=== PATIENT | female | born 1950 | race Caucasian/White ===

== ENCOUNTER 2017-03-12 05:17 | Day surgery (SDC) | payer OTHER, BC ==
[~2017-03-12] VITALS: Ht 162.6 cm; Wt 83.9 kg
--- NOTE | ~2017-03-12 | S ---
[facility] [place] [address] SURGICAL PATH RPT PROCEDURE Name: FRANK CLEMENS Room #: DEP [facility].#: [id number] Admission: 03/12/17 Date of : 48 Discharge: 03/12/17 Report #: [id number] Path Case #: [id number] PATHOLOGY REPORT COLLECTION DATE: 03/12/2017 RECEIVED DATE: 03/12/2017 SUBMITTING PHYS: Dr. Norbert Vickers OTHER PHYS: SPECIMEN(S) RECEIVED: A.Basal cell carcinoma left lower eyelid-medial canthus * * * * * * * * * * * * FINAL DIAGNOSIS: A. Basal cell carcinoma left lower eyelid-medial canthus: - Negative for residual carcinoma. - Biopsy site changes present. PATHOLOGIST: Manuelito An M.D. REPORT ELECTRONICALLY SIGNED BY: Manuelito An M.D. DATE/TIME: 03/13/2017 13:16 * * * * * * * * * * * * GROSS PATHOLOGY: The specimen is received fresh from the OR, labeled "Frank Clemens and basal cell carcinoma left lower eyelid medial canthus". It consists of an oriented ellipse of kwok-white skin and subcutaneous tissue measuring 0.8 x 0.4 cm. It is excised to a depth of 0.2 cm. Superior is designated 12:00. The margins are inked as follows: 12-6 - blue, 6-9 - black, and 9-12 - red. The specimen is serially sectioned and entirely submitted for one frozen section. The frozen section has been submitted as A1FS. (CLW:pit; 03/12/2017) FROZEN SECTION DIAGNOSIS: A1FS: "Basal cell carcinoma left lower eyelid medial canthus": - Previous biopsy site changes, margins free of invasive tumor. - The case was discussed with Dr. Norbert Vickers in the operating room and a written report is placed in the patient's chart. Frozen section Testing performed by [facility] at [facility] [address] [place] [address] CLINICAL HISTORY: [place] [address] [place] [address] SURGICAL PATH RPT PROCEDURE Name: CLEMENSFRANK Room #: DEP [facility] M.R.#: [id number] Admission: 03/12/17 Date of : 48 Discharge: 03/12/17 Report #: [id number] Path Case #: [id number] BCCA left lid INITIAL CPT CODE(S): A; 21989, 16446 Professional services performed by [facility] at [facility] [address] [place] [address] Technical services performed by [facility] at [address] [place] [address], [place] [address]. [facility] [address] [address] PHONE: [phone] DIRECTOR: Isael Rubio M.D. * * * END OF REPORT * * *
--- NOTE | ~2017-03-12 | O ---
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 PROCEDURE: Excision of basal cell carcinoma of left medial canthus with myocutaneous flap repair of defect, silicone lacrimal intubation with nasal surgical video endoscopy. SURGEON: Norbert Vickers MD NURSERYPERSON: None. ANESTHESIA: General. COMPLICATIONS: None. INDICATIONS FOR SURGERY: This pleasant 67-year-old woman has a biopsy proven basal cell carcinoma in her left medial canthus extending on to the upper eyelid. It is directly overlying the lacrimal outflow apparatus. She presents today for excision of the residual tumor with frozen sections, subsequent flap repair of that defect and silicone lacrimal intubation. Informed consent was obtained to include, but not limit to the potential risk for loss of vision, bleeding, infection, failure to improve the problem, the potential need for further surgery or treatment. DESCRIPTION OF PROCEDURE: The patient was taken to the operating room where general anesthesia was administered. The left medial canthal area and the left lateral wall of the nose were then generously infiltrated with Xylocaine with epinephrine mixed with Marcaine and Wydase. The patient was subsequently prepped and draped in the usual sterile fashion. A fine tip skin marking pen was then utilized to outline the residual lesion in the medial canthus and upper lid. Those incisions were then made with a [facility] [address] [place] [address] OPERATIVE REPORT Name: FRANK CLEMENS Room #: DEP [facility].#: [id number] Admission: 03/12/17 Attend Phys: Norbert Vickers MD Discharge: 03/12/17 Date of : 48 Report #: [id number] scissor removing 1-2 mm of normal appearing tissue along with that was distinctly abnormal. This tissue was then oriented on a drawing for the waiting pathologist as hemostasis was achieved in the field with diligent pinpoint monopolar cautery. The pathologist snap froze that tissue and found that the margins were clear. She did see evidence of prior biopsy. The superior and inferior puncta were then dilated with a double-ended punctum dilator. Santos tubes were then passed through the superior and inferior canaliculi and down the nasolacrimal duct into the inferior meatus. The cottonoid soaked in Afrin had been placed in the nares at the beginning of the case was removed. The nasal vault was then inspected with the video endoscope. The Santos hook was then used with the video endoscope to grasp the end of the Santos tube under the inferior turbinate and it was drawn at the nares. The Santos tubes were then secured to themselves with 3 square throws and subsequently to the lateral wall of the nose with one 5-0 Prolene suture. The area in the medial canthus was then undermined and hemostasis reachieved. The relaxing incision was made and a flap developed. The flap was then advanced and closed with interrupted 6-0 plain gut sutures. Erythromycin ophthalmic ointment was placed on the incision and the patient was subsequently transported to the recovery area having tolerated the procedures well with no anesthetic or operative complications being noted. By: 1111 1138 Norbert Vickers MD /nt
[~2017-03-12 05:17] MED LIST: ASPIRIN325 PO; COZAAR 25 MG TA25 MG PO; CRESTOR10 MG PO; GLUCOPHAGE500 MG PO; HYDROCHLOROTHIA25 M2 PO; NORCO 5-325 TA1 EACH PO; XANAX 0.25 MG0.25 MG PO
[2017-03-12 09:02] LABS: GLUCOSE POCT 135 mg/dl (70-99)
[2017-03-12 09:49] VITALS: BP 135/51
[2017-03-12 11:32] LABS: GLUCOSE POCT 128 mg/dl (70-99)
== END 2017-03-12 11:30 | disposition home or self-care (01) ==
LOC: TBA 05:17 → OR 05:17
PROVIDERS: Ophthalmology
DX: D23.12 Other benign neoplasm of skin of left eyelid, including canthus (principal); H04.552 Acquired stenosis of left nasolacrimal duct; H02.89 Other specified disorders of eyelid; I10 Essential (primary) hypertension; E11.9 Type 2 diabetes mellitus without complications; E78.5 Hyperlipidemia, unspecified; G47.33 Obstructive sleep apnea (adult) (pediatric); F32.89 Other specified depressive episodes; F41.8 Other specified anxiety disorders; Z87.442 Personal history of urinary calculi; Z87.891 Personal history of nicotine dependence; Z98.890 Other specified postprocedural states; Z79.899 Other long term (current) drug therapy; Z88.2 Allergy status to sulfonamides; Z91.040 Latex allergy status; Z88.8 Allergy status to other drugs, medicaments and biological substances; Z79.891 Long term (current) use of opiate analgesic
CPT/HCPCS: 50010; 50101; 50398; 51636; 51777; 56528; 62110; 62850; 64037

== ENCOUNTER → 2020-08-08 | Outpatient (CLI) | payer OTHER, BC ==
[~2020-08-08] MED LIST changes: +CIPRO500 MG PO; +HYDROCODONE-AP1 EAC6 PO; +ONDANSETRON HCL4 M2 PO
== END ==
LOC: SJCVC 10:25
PROVIDERS: ATTEND Internal Medicine
DX: R94.31 Abnormal electrocardiogram [ECG] [EKG] (principal); Z13.220 Encounter for screening for lipoid disorders; I35.8 Other nonrheumatic aortic valve disorders; I35.0 Nonrheumatic aortic (valve) stenosis; I10 Essential (primary) hypertension; F41.9 Anxiety disorder, unspecified; R07.89 Other chest pain; E11.9 Type 2 diabetes mellitus without complications; E78.5 Hyperlipidemia, unspecified; G47.30 Sleep apnea, unspecified; Z86.73 Personal history of transient ischemic attack (TIA), and cerebral infarction without residual deficits; Z87.891 Personal history of nicotine dependence; R09.89 Other specified symptoms and signs involving the circulatory and respiratory systems; E78.00 Pure hypercholesterolemia, unspecified; Z88.5 Allergy status to narcotic agent; Z88.2 Allergy status to sulfonamides; Z88.1 Allergy status to other antibiotic agents; Z91.040 Latex allergy status

== ENCOUNTER → 2020-08-17 | Outpatient (CLI) | payer BC, OTHER ==
[~2020-08-17] MED LIST changes: +ASA81BEC PO; +CLOPIDOGREL75 MG PO; +METOPROLOL SUCC25 M1 PO; +SUPER THERAVIT1 EACH PO; +VITAMIN D325 MC3 PO
== END ==
LOC: SJCVCIMAG 07:55
PROVIDERS: ATTEND Internal Medicine
DX: I65.23 Occlusion and stenosis of bilateral carotid arteries (principal); I08.1 Rheumatic disorders of both mitral and tricuspid valves; I10 Essential (primary) hypertension; R01.1 Cardiac murmur, unspecified; R09.89 Other specified symptoms and signs involving the circulatory and respiratory systems; E11.9 Type 2 diabetes mellitus without complications; Z87.891 Personal history of nicotine dependence

== ENCOUNTER → 2020-08-22 | Outpatient (CLI) | payer BC, OTHER | LOC: SJCVCIMAG 07:18 | PROVIDERS: ATTEND Internal Medicine | DX: R00.0 Tachycardia, unspecified (principal); I49.3 Ventricular premature depolarization; R06.00 Dyspnea, unspecified; R10.9 Unspecified abdominal pain; R11.0 Nausea; F41.9 Anxiety disorder, unspecified; E11.9 Type 2 diabetes mellitus without complications; Z79.84 Long term (current) use of oral hypoglycemic drugs; Z79.899 Other long term (current) drug therapy; Z87.891 Personal history of nicotine dependence ==

== ENCOUNTER 2020-08-28 06:27 | Inpatient (IN) | payer OTHER, BC ==
[~2020-08-28] VITALS: Ht 162.6 cm; Wt 82.6 kg
[~2020-08-28 06:27] MED LIST changes: -ASA81BEC PO; -CLOPIDOGREL75 MG PO; -METOPROLOL SUCC25 M1 PO; -SUPER THERAVIT1 EACH PO; -VITAMIN D325 MC3 PO
[2020-08-28 07:21] VITALS: BP 142/56
[2020-08-28] MEDS ORDERED: ASA81BEC PO (07:36)
[2020-08-28] MEDS ORDERED: SUPER THERAVIT1 EACH PO (07:37)
[2020-08-28] MEDS ORDERED: VITAMIN D325 MC3 PO (07:37)
--- NOTE | 2020-08-28 12:05 | CATHLAB ---
[facility] [place] [address] INVASIVE PROCEDURE REPORT Name: FRANK CLEMENS Room #: 209-P ADM IN M.R.#: [id number] Admission: 08/28/20 Attend Phys: Tolu Franco MD, Discharge: Date of : 48 Report #: [id number] THIS REPORT FOR: cc: Deya Clark MD, Genelle J. MD Mancuso, Gerald M. MD [facility] ~ APPROVED REPORT Study performed: 08/28/2020 08:01:49 Patient Details Patient Status: Out-Patient Room #: The patient is a 70 year-old female Event Personnel Thomas Flores Jewel Grinder, Tr Garcia RN RN, Hanny Lewis RTR Scrub, Casey Wells RTR Monitor Procedures Performed Left Heart Cath w/or w/o Coronaries [id number] [facility] Place w/wo Plasty Single RCA 068673 Art Access - R femoral artery* Renal Bilateral Peripheral Angiography 1090768 CVRENALBIL Hemostasis w/ Mynx 01260 Initial Mod Sed Same Phys/QHP Gr5y 362797 17528 Mod Sed Same Phys/QHP Ea 480792 Procedure Narrative The patient was brought electively to the Cardiac Catheterization Laboratory and was prepped and draped in a sterile manner. The Right Groin^ was infiltrated with 1% Lidocaine subcutaneous anesthesia. A PINNACLE 6FR Sheath #[id number] sheath was inserted into the RFA^. Coronary angiography was performed using coronary diagnostic catheters. The right coronary system was accessed and visualized with a 6FR JR4 catheter. The left coronary system was accessed and visualized with a 6FR JL4 catheter. The left ventricle was accessed and visualized with a 6FR STRAIGHT PIGTAIL catheter. Left ventricular/Aortic Valve gradient assessed via catheter pullback. Left ventriculogram was performed in 30 degree projection. Closure device was deployed with a Fr MYNXGRIP 6/7F #[id number]. The patient tolerated the procedure well and there were no complications associated with the procedure. There was no hematoma. Intraoperative Conscious Sedation Sedation start time: 8:51 Case end Time: 9:[address] [address] INVASIVE PROCEDURE REPORT Name: FRANK CLEMENS Room #: 209-P [facility] [place] ..#: [id number] Admission: 08/28/20 Attend Phys: Tolu Franco, Discharge: Date of : 48 Report #: [id number] Fentanyl 50 mcg Versed 1 mg Fluoro Time: 7.00 minutes Dose: DAP 77590.00 cGycm2 1661 mGy Contrast Type and Amount: Omnipaque 190 ml Hemodynamics The aortic pressure is 163/64 mmHg with a mean of 110 mmHg. The left ventricular pressure is 176/10 mmHg with a mean of mmHg. The left ventricular end diastolic pressure is 27 mmHg. Pullback from the left ventricle to the aorta revealed no gradient across the aortic valve. PCI Technique Lesion Percutaneous coronary intervention was performed on the distal right coronary artery. A LAUNCHER 6FR JR 4 #[id number] Guide Catheter was used to engage the RCA ostium. A Luge Wire .014 x 182CM #[id number] Interventional Guidewire was used to cross the lesion. BALLOON DILATION A Balloon catheter MINI TREK OTW 2.0 X 12 #[id number] was inserted and inflated up to 10.00atm for 21seconds. Additional Inflation: 12.00atm for 19seconds. STENT DEPLOYMENT A stent XIENCE TYSON RX 2.5 X 18 #[id number] was inserted and inflated up to 12.00atm for 29seconds. Conclusion #1. Successful PTCA stent of essentially a distally occluded dominant RCA with trivial flow through his subtotal lesion PDA fill via collateral initially. Placement of a 2.5 x 18 Xience Tyson drug-eluting stent ZELDA grade III flow and brisk filling of the entire PDA PL system in an antegrade fashion. #2 left main mildly calcified with the distal narrowing of 30% giving rise to LAD and circumflex. #3 LAD is moderately calcified diffusely disease but no high-grade occlusive disease that extends to the apex somewhat of an attenuated vessel. There is significant collateral filling from the septal system to the PDA. #4 circumflex OM also moderately calcified proximally with diffuse irregularity high-grade disease in a small and diffusely diseased distal OM not amenable to intervention. First OM is also severely diseased and not amenable to intervention. #5 normal left jugular size and inferior base is hypokinetic EF 50% range. [facility] [address] [place] [address] INVASIVE PROCEDURE REPORT Name: FRANK CLEMENS Room #: 209-P [facility] IN M.R.#: [id number] Admission: 08/28/20 Attend Phys: Tolu Franco, Discharge: Date of : 48 Report #: [id number] #6 left renal is large with mild disease no high-grade occlusive disease #7 the right kidney has dual supply the there is a high-grade ostial right renal artery stenosis in the superior branch and the right inferior branch is widely patent Recommendations plan: Continue aggressive risk factor modification. Dual antiplatelet therapy initiated. To CCU to follow post coronary stent protocol. Will obtain renal Doppler as outpatient to follow the right superior renal artery. She has a history of labile hypertension which may be precipitated by this renal artery stenosis for possible intervention at later date. <ELECTRONICALLY SIGNED> By: Thomas Flores MD, FACC 08/28/205 04 04 Thomas Flores MD, FACC /INF
[2020-08-28] MEDS ORDERED: CLOPIDOGREL75 MG PO (14:38)
[2020-08-28] MEDS ORDERED: METOPROLOL SUCC25 M1 PO (14:38)
--- NOTE | 2020-08-28 16:09 | EKG ---
[address] [address] ELECTROCARDIOGRAM REPORT Name: FRANK CLEMENS Room #: 209-P ADM IN M.R.#: [id number] Admission: 08/28/20 Attend Phys: Tolu Franco MD, Discharge: Date of : 48 Report #: [id number] [facility] Test Date: 2020-08-28 Test Time: 15:13:40 Pat Name: FRANK CLEMENS Department: Room: 209 P Gender: F Surgery Aide: FSCHWALBE : 1950 Requested By: Thomas Flores Order Number: [id number] MD: Tolu Franco Measurements Intervals [place] Rate: 71 P: 67 WI: 166 QRS: 63 QRSD: 93 T: 59 QT: 375 QTc: 408 Interpretive Statements Sinus rhythm Minimal ST depression, inferior leads Compared to ECG 08/27/2015 12:44:17 ST (T wave) deviation now present Early repolarization no longer present Electronically Signed On 08-28-2020 16:09:29 CDT by Tolu Franco [email or web address] <ELECTRONICALLY SIGNED> By: Tolu Franco MD, [facility] 08/28/20 1609 12 12 Tolu Franco MD, FAC /EPI
--- NOTE | 2020-08-28 19:40 | NUR ---
PATIENT ADMITTED THIS SHIFT TO CCU/2 [facility]TH FROM [facility]. REPORTED PATIENT RECEIVED 1 STENT. RIGHT GROIN UPON ARRIVAL C/D/I WITH NO BLEEDING OR HEMATOMA NOTED. PATIENT HAS NO C/O CHEST PAIN OR SHORTNESS OF BREATH THIS SHIFT. PATIENT HAS AMBULATED THROUGHOUT ROOM AND HALLWAYS WITHOUT COMPLICATION OR COMPLAINTS. VSS.
[2020-08-28 20:52] VITALS: BP 149/82
[2020-08-29 00:13] VITALS: BP 160/87
--- NOTE | 2020-08-29 03:55 | NUR ---
ASSESSMENTS CHARTED, MEDS CHARTED GIVEN. PATIENT WENT TO MED SURG RN DURING DAY, STENT TO DISTAL RCA. ACCESS THROUGH RIGHT GROIN, CLEAN DRY INTACT. C/O HEADACHE. STATED SHE DID NOT HAVE ANY OF HER MEDS FOR THE DAY AND SHE WANTED HER BLOOD PRESSURE MED. SPOKE WITH DR. UDAY PAUL GIVEN. FALL PRECAUTIONS IN PLACE DURING SHIFT.
[2020-08-29 04:45] VITALS: BP 139/56
[2020-08-29 04:55] LABS: HEMATOCRIT 34.8 % (37.0-47.0); HEMOGLOBIN 12.2 gm/dL (12.0-15.0); MCHC 34.9 g/dL (28.0-37.0); MCV 88.7 fL (80.0-100.0); RBC 3.93 mil/uL (4.20-5.00); RDW 14.6 % (10.5-14.5); WBC 10.8 thou/uL (4.0-11.0)
[2020-08-29 05:18] LABS: ALBUMIN 3.2 g/dL (3.4-5.0); ANION GAP 12 mmol/L (7-16); BUN 14 mg/dL (7-18); CHLORIDE 105 mmol/L (98-107); CO2 25 mmol/L (21-32); CREATININE 1.2 mg/dL (0.6-1.0); GLUCOSE 124 mg/dL (74-106); POTASSIUM 3.8 mmol/L (3.5-5.1); SGOT 16 U/L (15-37); SGPT 22 U/L (30-65); SODIUM 142 mmol/L (136-145); TOTAL BILIRUBIN 0.5 mg/dL (0.2-1.0); TOTAL PROTEIN 6.4 g/dL (6.4-8.2); TROPONIN-I <0.06 ng/mL (<0.06)
[2020-08-29 08:51] VITALS: BP 109/51
[2020-08-29 12:32] VITALS: BP 146/44
[2020-08-29 12:57] VITALS: BP 146/44
--- NOTE | 2020-08-29 13:41 | NUR ---
PT IS AXOX4, PLEASANT. DENIES PAIN. VSS, AFEBRILE, SR ON MONITOR. PT HAD CARDIAC CATH 08/28/20, R GROIN SITE, C/D/I, NO HEMATOMA. PT TO DISCHARGE TO HOME. DISCHARGE EDUCATION CONDUCTED OVER RX AND FOLLOW UP APPT. PT COMMUNICATED UNDERSTANDING. PT DISCHARGED TO HOME WITH SPOUSE VIA PERSONAL VEHICLE. NO CONCERNS AT THIS TIME.
== END 2020-08-29 13:43 | disposition home or self-care (01) | DRG 246 ==
LOC: CATH 06:27 → 2N 11:08 → CATH 12:59 → 2N 08-29 13:43
PROVIDERS: Nurse Practitioner Adult Health; ADMIT Internal Medicine; ATTEND Internal Medicine
PROC: B41G1ZZ Fluoroscopy of Left Lower Extremity Arteries using Low Osmolar Contrast (ICD-10-PCS; principal; 2020-08-28)
PROC: B41F1ZZ Fluoroscopy of Right Lower Extremity Arteries using Low Osmolar Contrast (ICD-10-PCS; principal; 2020-08-28)
PROC: B4181ZZ Fluoroscopy of Bilateral Renal Arteries using Low Osmolar Contrast (ICD-10-PCS; principal; 2020-08-28)
PROC: B2151ZZ Fluoroscopy of Left Heart using Low Osmolar Contrast (ICD-10-PCS; principal; 2020-08-28)
PROC: 027034Z Dilation of Coronary Artery, One Artery with Drug-eluting Intraluminal Device, Percutaneous Approach (ICD-10-PCS; principal; 2020-08-28)
PROC: B2111ZZ Fluoroscopy of Multiple Coronary Arteries using Low Osmolar Contrast (ICD-10-PCS; principal; 2020-08-28)
PROC: 4A023N7 Measurement of Cardiac Sampling and Pressure, Left Heart, Percutaneous Approach (ICD-10-PCS; principal; 2020-08-28)
DX: I25.10 Atherosclerotic heart disease of native coronary artery without angina pectoris (principal); I50.31 Acute diastolic (congestive) heart failure; I35.0 Nonrheumatic aortic (valve) stenosis; I10 Essential (primary) hypertension; E11.9 Type 2 diabetes mellitus without complications; E78.5 Hyperlipidemia, unspecified; I65.23 Occlusion and stenosis of bilateral carotid arteries; Z87.891 Personal history of nicotine dependence; E78.00 Pure hypercholesterolemia, unspecified; Z88.2 Allergy status to sulfonamides; Z88.8 Allergy status to other drugs, medicaments and biological substances; Z91.040 Latex allergy status
CPT/HCPCS: 10081

== ENCOUNTER → 2020-09-04 | Outpatient (CLI) | payer OTHER, BC ==
[~2020-09-04] MED LIST changes: +ASA81BEC PO; +CLOPIDOGREL75 MG PO; +METOPROLOL SUCC25 M1 PO; +SUPER THERAVIT1 EACH PO; +VITAMIN D325 MC3 PO
== END ==
LOC: SJCVC 09:32
PROVIDERS: ATTEND Internal Medicine
DX: I25.10 Atherosclerotic heart disease of native coronary artery without angina pectoris (principal); E11.9 Type 2 diabetes mellitus without complications; E78.5 Hyperlipidemia, unspecified; I10 Essential (primary) hypertension; G47.30 Sleep apnea, unspecified; I73.9 Peripheral vascular disease, unspecified; R06.00 Dyspnea, unspecified; I34.0 Nonrheumatic mitral (valve) insufficiency; I65.23 Occlusion and stenosis of bilateral carotid arteries; E11.51 Type 2 diabetes mellitus with diabetic peripheral angiopathy without gangrene; Z79.82 Long term (current) use of aspirin; Z79.899 Other long term (current) drug therapy; Z86.73 Personal history of transient ischemic attack (TIA), and cerebral infarction without residual deficits; Z87.891 Personal history of nicotine dependence; Z82.49 Family history of ischemic heart disease and other diseases of the circulatory system